=== PATIENT | male | born 1950 | race Caucasian/White ===

== ENCOUNTER → 2018-06-09 11:14 | Outpatient (CLI) | payer MEDICARE, BC ==
[2014-01-02 15:35] VITALS: BMI 27.4
[~2018-06-09 11:14] MED LIST: ANTIVERT25 MG PO; NORVASC10 MG PO
== END | disposition home or self-care (01) ==
LOC: D.MRI 11:14
DX: S83.242D Other tear of medial meniscus, current injury, left knee, subsequent encounter (principal); X58.XXXD Exposure to other specified factors, subsequent encounter

== ENCOUNTER 2020-08-13 13:20 | Emergency (ER) | payer MEDICARE, BC ==
[~2020-08-13] VITALS: Ht 170.2 cm; Wt 80.9 kg
[2020-08-13 13:46] VITALS: Ht 170.2 cm; Wt 80.9 kg
[2020-08-13] MEDS ORDERED: AUGMENTIN 875-11 TAB PO (14:32)
[2020-08-13] MEDS ORDERED: HYDROCODON-ACE1 EAC7 PO (15:32)
[2020-08-13 15:53] VITALS: BP 136/44
== END 2020-08-13 15:53 | disposition home or self-care (01) ==
LOC: D.ER 13:20
DX: S61.213A Laceration without foreign body of left middle finger without damage to nail, initial encounter (principal); S68.123A Partial traumatic metacarpophalangeal amputation of left middle finger, initial encounter; I10 Essential (primary) hypertension; W45.8XXA Other foreign body or object entering through skin, initial encounter; Y93.9 Activity, unspecified; Y92.9 Unspecified place or not applicable